=== PATIENT | female | born 1945 | race Caucasian/White ===

== ENCOUNTER 2016-11-30 16:05 | Emergency (ER) | payer OTHER ==
[~2016-11-30] VITALS: Ht 152.4 cm; Wt 48.5 kg
--- NOTE | 2016-11-30 16:11 | NUR ---
BIB SELF, CC: BODY ACHES, RIGHT KNEE PAIN, ARM PAINS; PT IS AAO3, APPEARS IN NO ACUTE DISTRESS NOTED. RESPIRATION EVEN AND UNLABORED. AFEBRILE. VSS
[2016-11-30 16:55] LABS: BASOPHILS % (AUTO) 0.6 % (0.0-2.0); EOSINOPHILS # (AUTO) 0.3 /CMM (0.0-0.7); EOSINOPHILS % (AUTO) 5.2 % (0.0-6.0); HEMATOCRIT 39 % (33-45); HEMOGLOBIN 12.9 g/dL (11.5-14.8); LYMPHOCYTES # (AUTO) 2.2 /CMM (0.8-4.8); LYMPHOCYTES % (AUTO) 33.6 % (20.0-44.0); MEAN CORPUSCULAR HEMOGLOBIN 28 PG (26.0-33.0); MEAN CORPUSCULAR HGB CONC 33 g/dl (31.0-36.0); MEAN CORPUSCULAR VOLUME 85 fL (82-100); MONOCYTES # (AUTO) 0.8 /CMM (0.1-1.30); MONOCYTES % (AUTO) 11.3 % (2.0-12.0); NEUTROPHILS # (AUTO) 3.3 /CMM (1.8-8.9); NEUTROPHILS % (AUTO) 49.3 % (43.0-81.0); PLATELET COUNT (AUTO) 249 /CMM (150-450); RED BLOOD CELL COUNT(AUTO) 4.62 MIL/uL (4.0-5.2); WHITE BLOOD COUNT (AUTO) 6.7 K/uL (4.3-11.0)
[2016-11-30 16:59] LABS: CALCIUM, SERUM 8.4 mg/dL (8.5-10.1); CARBON DIOXIDE 27 mmol/L (21-32); CHLORIDE 104 mmol/L (98-107); CREATININE 0.7 mg/dL (0.6-1.3); GLUCOSE 99 mg/dL (74-106); POTASSIUM 3.8 mmol/L (3.5-5.1); SODIUM SERUM 139 mmol/L (136-145); UREA NITROGEN, BLOOD 14 mg/dL (7-18)
[2016-11-30 17:08] LABS: TROPONIN I < 0.017 ng/mL (0.00-0.056)
[2016-11-30 17:58] VITALS: BP 142/80
--- NOTE | 2016-11-30 17:58 | NUR ---
Patient discharged to home in stable condition. Written and verbal after care instructions given. Patient verbalizes understanding of instruction.
== END 2016-11-30 17:59 | disposition home or self-care (01) ==
LOC: ER 16:08
DX: M25.561 Pain in right knee (principal); M25.512 Pain in left shoulder; M54.9 Dorsalgia, unspecified; M54.30 Sciatica, unspecified side; Z98.890 Other specified postprocedural states
CPT/HCPCS: 36415; 71010-TC; 73060-TC; 73564-TC; 80048-TC; 84484-TC; 85025-TC; A4606; Z7610

== ENCOUNTER 2017-08-30 14:52 | Emergency (ER) | payer MEDICARE, OTHER ==
[~2017-08-30] VITALS: Ht 152.4 cm; Wt 45.4 kg
[2017-08-30 14:52] VITALS: BP 142/80
[2017-08-30] MEDS ORDERED: KETOROLAC TROMETHAMINE INJ 30 MG/ML VIAL ONE (16:20)
[2017-08-30] MEDS ORDERED: KETOROLAC TROMETHAMINE INJ 60 MG/2 ML VIAL IM ONE (16:30)
== END 2017-08-30 16:27 | disposition home or self-care (01) ==
LOC: ER 14:54
DX: M79.605 Pain in left leg (principal); G89.29 Other chronic pain; I10 Essential (primary) hypertension
CPT/HCPCS: 96372; 99283; A4606; J1885; Z7610

== ENCOUNTER 2018-08-25 13:40 | Emergency (ER) | payer MEDICARE ==
[~2018-08-25] VITALS: Ht 152.4 cm; Wt 49.0 kg
--- NOTE | 2018-08-25 13:50 | NUR ---
aaox3, came to ER c/o Abdominal Pain "mostly on Right side-back been having this for months". RR is even and unlabored with nad noted. skin is warm and dry. awaiting md for eval.
[2018-08-25 14:07] LABS: BASOPHILS # (AUTO) 0.1 /CMM (0.0-0.2); BASOPHILS % (AUTO) 1.1 % (0.0-2.0); EOSINOPHILS % (AUTO) 5.9 % (0.0-6.0); HEMATOCRIT 44 % (33-45); HEMOGLOBIN 14.4 g/dL (11.5-14.8); LYMPHOCYTES # (AUTO) 2.2 /CMM (0.8-4.8); MEAN CORPUSCULAR HGB CONC 33 g/dl (31.0-36.0); MEAN CORPUSCULAR VOLUME 86 fL (82-100); MONOCYTES # (AUTO) 0.7 /CMM (0.1-1.30); MONOCYTES % (AUTO) 11.2 % (2.0-12.0); NEUTROPHILS # (AUTO) 2.8 /CMM (1.8-8.9); NEUTROPHILS % (AUTO) 45.8 % (43.0-81.0); PLATELET COUNT (AUTO) 275 /CMM (150-450); RED BLOOD CELL COUNT(AUTO) 5.04 MIL/uL (4.0-5.2); WHITE BLOOD COUNT (AUTO) 6.2 K/uL (4.3-11.0)
[2018-08-25 14:13] LABS: CALCIUM, SERUM 8.7 mg/dL (8.5-10.1); CARBON DIOXIDE 32 mmol/L (21-32); CHLORIDE 102 mmol/L (98-107); CREATININE 0.6 mg/dL (0.6-1.3); GLUCOSE 102 mg/dL (74-106); POTASSIUM 3.8 mmol/L (3.5-5.1); SODIUM SERUM 138 mmol/L (136-145); UREA NITROGEN, BLOOD 15 mg/dL (7-18)
[2018-08-25 14:16] LABS: APPEARANCE,URINE Clear (CLEAR); BILIRUBIN,URINE Negative (NEGATIVE); BLOOD, URINE Trace-intact Ery/uL (NEGATIVE); COLOR,URINE Light yellow (YELLOW); KETONES,URINE Negative (NEGATIVE); LEUKOCYTE ESTERASE ,URINE Negative (NEGATIVE); NITRITE, URINE Negative (NEGATIVE); PROTEIN,URINE Negative (NEGATIVE); UGLUCOSE Negative (NEGATIVE); UROBILINOGEN,URINE 0.2 EU/dL (0.2)
[2018-08-25 14:22] LABS: ALANINE AMINOTRANSFERASE 31 U/L (12-78); ALKALINE PHOSPHATASE 90 U/L (46-116); ASPARTATE AMINOTRANSFERASE 15 U/L (15-37); BILIRUBIN,DIRECT 0.1 mg/dL (0.0-0.2); BILIRUBIN,TOTAL 0.8 mg/dL (0.2-1.0); LIPASE 217 U/L (73-393); TOTAL PROTEIN, SERUM 7.8 g/dL (6.4-8.2)
[2018-08-25 14:23] LABS: BACTERIA,URINE None seen /HPF (None Seen); SQUAMOUS EPITHELIAL CELL,UR Rare /HPF (None Seen); WBC,URINE 0-2 /HPF (0-3)
--- NOTE | 2018-08-25 15:17 | NUR ---
transported for CT
--- NOTE | 2018-08-25 16:56 | NUR ---
PT DISCHARGED HOME PIV REMOVED FROM RIGHT AC WITH TIP INTACT. PT STABLE WALKED WITH STEADY GAIT GIVEN ACI WILL FOLLOW UP WITH PMD
[2018-08-25 16:57] VITALS: BP 150/89
== END 2018-08-25 16:58 | disposition home or self-care (01) ==
LOC: ER 13:46
DX: G89.29 Other chronic pain (principal); R10.11 Right upper quadrant pain; R10.31 Right lower quadrant pain; F41.9 Anxiety disorder, unspecified; R51 Headache; I51.7 Cardiomegaly; I10 Essential (primary) hypertension; M54.30 Sciatica, unspecified side; Z98.890 Other specified postprocedural states
CPT/HCPCS: 36415; 70450-TC; 80048-TC; 80076-TC; 81000-TC; 83690-TC; 85025-TC

== ENCOUNTER 2020-02-28 14:59 | Emergency (ER) | payer MEDICARE ==
[~2020-02-28] VITALS: Ht 167.6 cm; Wt 48.5 kg
[2020-02-28 15:14] VITALS: BP 151/69
--- NOTE | 2020-02-28 16:56 | NUR ---
R arm wrist splint/thumb abduction applied by Nan. For discharge Patient discharged to home in stable condition. Written and verbal after care instructions given. Patient verbalizes understanding of instruction.
== END 2020-02-28 16:58 | disposition home or self-care (01) ==
LOC: ER 15:00
DX: S63.591A Other specified sprain of right wrist, initial encounter (principal); I10 Essential (primary) hypertension; Z98.890 Other specified postprocedural states; W01.0XXA Fall on same level from slipping, tripping and stumbling without subsequent striking against object, initial encounter; Y93.89 Activity, other specified; Y92.89 Other specified places as the place of occurrence of the external cause; Y99.8 Other external cause status
CPT/HCPCS: 29125; 73110; 99283; L0172

== ENCOUNTER 2021-04-23 14:50 | Emergency (ER) | payer MEDICARE ==
[~2021-04-23] VITALS: Ht 152.4 cm; Wt 49.4 kg
--- NOTE | 2021-04-23 15:38 | NUR ---
PATIENT PRESENTS IN ED FOR C/O BACK PAIN R/T R SIDED ON & OFF PAIN, BILATERAL EAR PAIN X FEW MONTHS. PATIENT ALERT AND ORIENTEDX4 NO RESPIRATORY DISTRESS NOTED. RESPIRATIONS EVEN AND UNLABORED. AWAITING MD WILSON
[2021-04-23] MEDS ORDERED: HYDROCHLOROTHIAZIDE 25 MG TABLET ONE (16:26)
[2021-04-23 16:30] LABS: BASOPHILS # (AUTO) 0.1 K/uL (0.0-0.2); EOSINOPHILS % (AUTO) 6.9 % (0.0-6.0); HEMATOCRIT 40 % (33-45); HEMOGLOBIN 13.1 g/dL (11.5-14.8); LYMPHOCYTES # (AUTO) 2.1 K/uL (0.8-4.8); MEAN CORPUSCULAR HGB CONC 32 g/dl (31.0-36.0); MEAN CORPUSCULAR VOLUME 86 fL (82-100); MONOCYTES # (AUTO) 0.7 K/uL (0.1-1.30); MONOCYTES % (AUTO) 10.6 % (2.0-12.0); NEUTROPHILS # (AUTO) 3.3 K/uL (1.8-8.9); NEUTROPHILS % (AUTO) 49.5 % (43.0-81.0); PLATELET COUNT (AUTO) 252 K/uL (150-450); RED BLOOD CELL COUNT(AUTO) 4.69 MIL/uL (4.0-5.2); WHITE BLOOD COUNT (AUTO) 6.6 K/uL (4.3-11.0)
[2021-04-23 16:31] VITALS: BP 172/80
[2021-04-23] MEDS: HYDROCHLOROTHIAZIDE 25 MG TABLET PO ONE (16:31)
--- NOTE | 2021-04-23 16:35 | NUR ---
pt unable to give a urine sample
[2021-04-23 16:37] LABS: CALCIUM, SERUM 9.1 mg/dL (8.5-10.1); CREATININE 0.6 mg/dL (0.6-1.3); POTASSIUM 3.9 mmol/L (3.5-5.1)
[2021-04-23 16:43] LABS: ALBUMIN 3.8 g/dL (3.4-5.0); BILIRUBIN,DIRECT 0.1 mg/dL (0.0-0.2); BILIRUBIN,TOTAL 0.8 mg/dL (0.2-1.0); TOTAL PROTEIN, SERUM 7.1 g/dL (6.4-8.2)
[2021-04-23 17:20] LABS: BILIRUBIN,URINE Negative (NEGATIVE); COLOR,URINE YELLOW (YELLOW); LEUKOCYTE ESTERASE ,URINE Negative (NEGATIVE); NITRITE, URINE Negative (NEGATIVE); PH,URINE 7.5 (5.0-8.0); PROTEIN,URINE Negative (NEGATIVE); UGLUCOSE Negative (NEGATIVE); UROBILINOGEN,URINE 0.2 EU/dL (0.2)
[2021-04-23] MEDS ORDERED: IV NS 0.9% 250 ML IV ONE (17:29)
[2021-04-23] MEDS ORDERED: CT SWABBABLE VALVE TRANS SET 1 EA INFUS.SET MC ONE (17:29)
[2021-04-23] MEDS ORDERED: IOHEXOL-300 100 ML VIAL IV ONE (17:29)
--- NOTE | 2021-04-23 17:29 | NUR ---
Fabiola kowalski in [facility] - 04/23/21 at 1731 by KENTON Per [facility] "pt is expected to go to [facility] after medical clearance"
--- NOTE | 2021-04-23 19:17 | NUR ---
CHETAN PARR, ON THE PHONME WITH DR TEODORO NEIR, GENERAL SURGEON
[2021-04-23] MEDS ORDERED: PIPERACILLIN /TAZOBACTAM 3.375 G in IV D5W 50 ML IV ONE (19:30)
[2021-04-23] MEDS ORDERED: NEOM10DR46 OT (19:35)
--- NOTE | 2021-04-23 19:40 | NUR ---
pt left against medical advice, despite multiple attempts of education on importance of staying.
--- NOTE | 2021-04-23 19:41 | NUR ---
CHETAN victor made aware of pt leaving against medical advice
== END 2021-04-23 19:41 | disposition left against medical advice (07) ==
LOC: ER 14:58
DX: K37 Unspecified appendicitis (principal); H60.91 Unspecified otitis externa, right ear; I10 Essential (primary) hypertension; F10.10 Alcohol abuse, uncomplicated; Y90.9 Presence of alcohol in blood, level not specified; Z98.890 Other specified postprocedural states; Z79.899 Other long term (current) drug therapy
CPT/HCPCS: 36415; 74177; 76700; 80048; 80076; 81003; 85025; 93005; 99285; J2543; J7050; J7060; Q9967

== ENCOUNTER 2021-04-24 16:13 | Emergency (ER) | payer MEDICARE ==
[~2021-04-24] VITALS: Ht 152.4 cm; Wt 48.5 kg
[~2021-04-24 16:13] MED LIST: NEOM10DR46 OT
--- NOTE | 2021-04-24 17:30 | NUR ---
The patient bibs for c/o R side/rib area pain. The patient rates pain 6/10. No apparent deformity noted. In room air and denies SOB. Respiration regular and unlabored. Will continue to monitor the patient.
[2021-04-24 18:47] LABS: BASOPHILS # (AUTO) 0.1 K/uL (0.0-0.2); BASOPHILS % (AUTO) 0.9 % (0.0-2.0); EOSINOPHILS % (AUTO) 4.6 % (0.0-6.0); HEMATOCRIT 43 % (33-45); HEMOGLOBIN 14.1 g/dL (11.5-14.8); LYMPHOCYTES # (AUTO) 1.9 K/uL (0.8-4.8); MEAN CORPUSCULAR HGB CONC 33 g/dl (31.0-36.0); MEAN CORPUSCULAR VOLUME 87 fL (82-100); MONOCYTES # (AUTO) 0.7 K/uL (0.1-1.30); MONOCYTES % (AUTO) 10.8 % (2.0-12.0); NEUTROPHILS # (AUTO) 3.4 K/uL (1.8-8.9); NEUTROPHILS % (AUTO) 53.7 % (43.0-81.0); PLATELET COUNT (AUTO) 256 K/uL (150-450); RED BLOOD CELL COUNT(AUTO) 4.93 MIL/uL (4.0-5.2); WHITE BLOOD COUNT (AUTO) 6.3 K/uL (4.3-11.0)
[2021-04-24 19:40] LABS: ALANINE AMINOTRANSFERASE 22 U/L (12-78); ALBUMIN 4.1 g/dL (3.4-5.0); ALKALINE PHOSPHATASE 69 U/L (46-116); ASPARTATE AMINOTRANSFERASE 19 U/L (15-37); BILIRUBIN,DIRECT 0.2 mg/dL (0.0-0.2); BILIRUBIN,TOTAL 1.1 mg/dL (0.2-1.0); CALCIUM, SERUM 9.1 mg/dL (8.5-10.1); CARBON DIOXIDE 28 mmol/L (21-32); CHLORIDE 103 mmol/L (98-107); CREATININE 0.7 mg/dL (0.6-1.3); GLUCOSE 95 mg/dL (74-106); LIPASE 123 U/L (73-393); POTASSIUM 3.4 mmol/L (3.5-5.1); SODIUM SERUM 142 mmol/L (136-145); TOTAL PROTEIN, SERUM 7.6 g/dL (6.4-8.2); UREA NITROGEN, BLOOD 18 mg/dL (7-18)
--- NOTE | 2021-04-24 20:02 | NUR ---
DR NERI SPEAKING WITH DR MORALES
[2021-04-24 20:30] VITALS: BP 141/102
--- NOTE | 2021-04-24 20:32 | NUR ---
DR MORALES AT BEDSIDE AND EXPLAINED LABS AND IMAGING RESULTS.
--- NOTE | 2021-04-24 20:33 | NUR ---
Patient discharged to home in stable condition. Written and verbal after care instructions given. Patient verbalizes understanding of instruction. Patient ambulatory with a steady gait
== END 2021-04-24 20:30 | disposition home or self-care (01) ==
LOC: ER 16:23
DX: R10.31 Right lower quadrant pain (principal); I10 Essential (primary) hypertension; F10.10 Alcohol abuse, uncomplicated; Y90.9 Presence of alcohol in blood, level not specified; Z98.890 Other specified postprocedural states; Z79.899 Other long term (current) drug therapy
CPT/HCPCS: 36415; 80048-TC; 80076-TC; 83690-TC; 84484-TC; 85025-TC

== ENCOUNTER 2021-07-17 16:40 | Emergency (ER) | payer MEDICARE ==
[~2021-07-17] VITALS: Ht 152.4 cm; Wt 47.6 kg
--- NOTE | 2021-07-17 17:15 | NUR ---
[id number], C/O DIZZINESS & VOMITING WHILE DRIVING. ELEVATED BP. ALERT AND ORIENTED X3. DENIES PAIN. IN ROOM AIR AND DENIES SOB. RESPIRATION REGULAR AND UNLABORED. WILL CONTINUE TO MONITOR THE PATIENT.
[2021-07-17] MEDS ORDERED: ONDANSETRON 4 MG TAB.RAPDIS ONE ×2 (17:26→19:37)
[2021-07-17] MEDS: ONDANSETRON 4 MG TAB.RAPDIS PO ONE ×2 (17:30→20:02)
--- NOTE | 2021-07-17 17:45 | NUR ---
DR WHITE MADE AWARE OF BLOOD PRESSURE 190/81. NO NEW ORDERS PER DR WHITE.
[2021-07-17 18:06] LABS: BASOPHILS # (AUTO) 0.1 K/uL (0.0-0.2); BASOPHILS % (AUTO) 0.7 % (0.0-2.0); EOSINOPHILS % (AUTO) 3.1 % (0.0-6.0); HEMATOCRIT 42 % (33-45); LYMPHOCYTES # (AUTO) 1.9 K/uL (0.8-4.8); LYMPHOCYTES % (AUTO) 22.3 % (20.0-44.0); MEAN CORPUSCULAR HGB CONC 33 g/dl (31.0-36.0); MEAN CORPUSCULAR VOLUME 86 fL (82-100); MONOCYTES # (AUTO) 0.8 K/uL (0.1-1.30); MONOCYTES % (AUTO) 9.4 % (2.0-12.0); NEUTROPHILS # (AUTO) 5.5 K/uL (1.8-8.9); NEUTROPHILS % (AUTO) 64.5 % (43.0-81.0); PLATELET COUNT (AUTO) 272 K/uL (150-450); RED BLOOD CELL COUNT(AUTO) 4.93 MIL/uL (4.0-5.2); WHITE BLOOD COUNT (AUTO) 8.6 K/uL (4.3-11.0)
--- NOTE | 2021-07-17 18:19 | NUR ---
UNABLE TO PROVIDE URINE AT THIS TIME
[2021-07-17 18:21] LABS: CALCIUM, SERUM 8.9 mg/dL (8.5-10.1); CARBON DIOXIDE 27 mmol/L (21-32); CHLORIDE 101 mmol/L (98-107); CREATININE 0.6 mg/dL (0.6-1.3); GLUCOSE 129 mg/dL (74-106); POTASSIUM 2.9 mmol/L (3.5-5.1); SODIUM SERUM 138 mmol/L (136-145); UREA NITROGEN, BLOOD 12 mg/dL (7-18)
[2021-07-17 18:24] LABS: ALANINE AMINOTRANSFERASE 34 U/L (12-78); ALKALINE PHOSPHATASE 74 U/L (46-116); ASPARTATE AMINOTRANSFERASE 24 U/L (15-37); BILIRUBIN,DIRECT 0.2 mg/dL (0.0-0.2); TOTAL PROTEIN, SERUM 7.6 g/dL (6.4-8.2)
[2021-07-17] MEDS ORDERED: ONDA4TAB5 PO (19:17)
[2021-07-17] MEDS ORDERED: ONDANSETRON HCL/PF 4 MG/2 ML VIAL ONE (19:32)
[2021-07-17] MEDS ORDERED: ONDANSETRON HCL 4 MG/5 ML SOLUTION PO ONE (20:00)
--- NOTE | 2021-07-17 20:00 | NUR ---
Patient does not wish to proceed with medical care recommended by Dr. Ching. Patient given information related to possible complications, up to and including , which could occur as a result of leaving the hospital at this time. Patient verbalizes understanding of risks involved due to leaving against medical advice. Patient has signed AMA form. Written and verbal after care instructions given. Patient verbalizes understanding of instruction.
[2021-07-17 21:07] VITALS: BP 153/77
== END 2021-07-17 21:10 | disposition home or self-care (01) ==
LOC: ER 17:02
DX: R11.2 Nausea with vomiting, unspecified (principal); I10 Essential (primary) hypertension; R42 Dizziness and giddiness; Z98.890 Other specified postprocedural states; Z79.899 Other long term (current) drug therapy
CPT/HCPCS: 36415; 80048; 80076; 84484; 85025; 85730; 93005; 99285; J2405; Q0162 ×2

== ENCOUNTER 2023-04-03 00:32 | Emergency (ER) | payer MEDICARE ==
[~2023-04-03] VITALS: Ht 152.4 cm; Wt 48.5 kg
[~2023-04-03 00:32] MED LIST changes: +ONDA4TAB5 PO
[2023-04-03] MEDS ORDERED: KETOROLAC TROMETHAMINE INJ 60 MG/2 ML VIAL IM ONE (04:30)
[2023-04-03] MEDS ORDERED: CYCLOBENZAPRINE 10 MG TABLET PO ONE (04:30)
[2023-04-03] MEDS ORDERED: KETOROLAC TROMETHAMINE 15 MG/ML VIAL ONE (04:33)
[2023-04-03] MEDS ORDERED: CYCLOBENZAPRINE 10 MG TABLET ONE (04:33)
[2023-04-03] MEDS ORDERED: DIAZEPAM 5 MG TABLET PO ONE (06:00)
[2023-04-03] MEDS ORDERED: DIAZEPAM 5 MG TABLET ONE (06:09)
[2023-04-03] MEDS ORDERED: DIAZ5TAB PO (07:01)
[2023-04-03] MEDS ORDERED: TYL2T PO (07:01)
[2023-04-03 07:37] VITALS: BP 144/90; TEMP 98.3; O2SAT 97
[2023-04-06] MEDS ORDERED: DIAZ5TAB PO (00:37)
== END 2023-04-03 07:38 | disposition home or self-care (01) ==
LOC: ER 00:32
DX: M54.2 Cervicalgia (principal); I10 Essential (primary) hypertension; Z98.890 Other specified postprocedural states; Z79.899 Other long term (current) drug therapy
CPT/HCPCS: 99285; 72125; 96372; J1885